=== PATIENT | female | born 1985 | race Caucasian/White ===

== ENCOUNTER → 2018-04-03 | Outpatient (CLI) | payer BC | LOC: FIMAGING 09:34 | PROVIDERS: ATTEND Advanced Practice Midwife | DX: O09.522 Supervision of elderly multigravida, second trimester (principal); Z3A.20 20 weeks gestation of pregnancy ==

== ENCOUNTER 2018-07-16 08:32 | Observation (INO) | payer BC ==
--- NOTE | 2018-07-16 11:28 | PDGENHP ---
History and Physical History and Physical: CARE: [facility] HPI: Patient is a 33 yo G 2 P 1 @ 34.6 weeks that presents to L&D with complaints of suspected rupture of membranes and concerns about positioning. EDC: 08/21/18 which is based on LMP: 2.9.18 which is known and consistent with Ultrasound at 14 weeks. Her is complicated by: pre-term contractions, low back pain. Review of Systems: Constitutional: Denies any fever, chills, or fatigue HEENT: denies any visual changes, difficulty swallowing, hearing loss Cardiovascular: Denies any chest pain, palpitations, leg swelling Respiratory: denies any cough, wheezing, or shortness of breathe GI: Denies any nausea, vomiting, diarrhea, constipation : denies any dysuria, urgency, frequency, vaginal bleeding REPORTS white, clear vaginal discharge Musculoskeletal: denies any muscle or bone pain Skin: denies any rashes Neuro: denies any headache, seizures, lightheadedness, dizziness, or loss of consciousness Psychiatric: denies any depression, anxiety, or SI/HI thoughts HISTORY: Previous OB history: term IUP, 08/2012. Social history: Family history: denies relevant family history Past medical history: seasonal allergies Past surgical history: R wrist, R knee, wisdom teeth Medications: PNV, magnesium, zyrtec Allergies (list reaction): NKDA LABS: Rh: O+ ABS: Neg Rubella: Immune HbsAg: NR HIV: NR VDRL: NR 1hr: 67 GC: Neg Chlamydia: Neg Pap: Normal GBS: not done yet BMI: (prepreg) <30 PHYSICAL EXAM: Constitutional: WN, A&Ox3 HEENT: normocephalic atraumatic, supple Heart: RRR, no murmur Chest: CTA-B Skin: warm, dry, intact Abdomen: Soft, nontender, gravid SVE: not performed Extremities: no edema, negative homans sign Neuro: grossly normal Psych: normal affect assessment: FHT baseline 130-140 +accels, no decels, moderate variability , REACTIVE NST Contractions: toco q irregular Assessment: 1) 33 yo G 2 P 1 with IUP@ 34w6d 2) suspected pre-term labor 3) suspected rupture of membranes 4) Cat 1 FHR tracing Plan: 1) Admit to triage 2) amnisure 3) bedside u/s
--- NOTE | 2018-07-16 11:38 | OBGCSDC ---
General Delivery Information - General Info : 2 Para: 1 Abortions: 0 L&D Analgesia/Anesthesia Type: None Admission Date: 07/16/18 - Hospital Course Antepartum: 07/16/18 11:33 Amnisure negative, FHR reassuring, cat 1 tracing, uterine contractions not observed. Bedside ultrasound shows vertex presentation with head not engaged in LRQ. Fundal height 32 cm at 34w5d. Order for outpatient u/s given to patient. Reviewed recommendations for positioning to encourage baby to move into pelvis. OK to continue with chiropractic and accupunture. Discussed option for hospital delivery with CNM practice if patient desires. F/U with CNM at [facility] if patient plans to continue care at that facility. 30 min in face to face counseling on plans for remainder of . Data VENKATESH: 08/21/18 Gestational Age: 34 week(s) and 6 day(s) Discharge Information - Discharge Information Condition: Good Instruction/Follow Up: See Instruction Sheet (undelivered.)
== END 2018-07-16 11:25 | disposition home or self-care (01) ==
LOC: FLD 08:32
PROVIDERS: ADMIT Advanced Practice Midwife; ATTEND Advanced Practice Midwife
DX: O99.89 Other specified diseases and conditions complicating pregnancy, childbirth and the puerperium (principal); R10.9 Unspecified abdominal pain
CPT/HCPCS: 59025; G0378

== ENCOUNTER → 2018-07-21 | Outpatient (CLI) | payer BC | LOC: FIMAGING 14:17 | PROVIDERS: ATTEND Advanced Practice Midwife | DX: O09.523 Supervision of elderly multigravida, third trimester (principal); O36.5930 Maternal care for other known or suspected poor fetal growth, third trimester, not applicable or unspecified; Z3A.35 35 weeks gestation of pregnancy ==